=== PATIENT | male | born 1975 | race Caucasian/White ===

== ENCOUNTER 2021-07-31 09:46 | Emergency (ER) | payer BC ==
[2021-07-31] MEDS ORDERED: Lidocaine 1% (PF) 30 ML VIAL ONE (11:03)
== END 2021-07-31 12:15 | disposition home or self-care (01) ==
LOC: MADERS 09:46
DX: S61.012A Laceration without foreign body of left thumb without damage to nail, initial encounter (principal); F17.220 Nicotine dependence, chewing tobacco, uncomplicated; W26.0XXA Contact with knife, initial encounter
CPT/HCPCS: 12001; J2001